=== PATIENT | female | born 1930 | race Caucasian/White ===

== ENCOUNTER 2017-06-22 12:42 | Emergency (ER) | payer BC, MEDICARE, OTHER ==
[~2017-06-22] VITALS: Ht 152.4 cm; Wt 70.3 kg
--- NOTE | 2017-06-22 12:52 | NUR ---
THE PATIENT WAS SEEN AND ASSESSED BY ER MD AT BEDSIDE
--- NOTE | 2017-06-22 12:53 | NUR ---
NO ACUTE DISTRESS- THE PATIENT DENIES PAIN OR SOB; JUST " DIZZY"
[2017-06-22] MEDS ORDERED: PANTOPRAZOLE 40 MG VIAL ONE (13:07)
[2017-06-22 13:22] LABS: BASOPHILS % (AUTO) 0.1 % (0.0-2.0); EOSINOPHILS # (AUTO) 0.1 /CMM (0.0-0.7); EOSINOPHILS % (AUTO) 1.2 % (0.0-6.0); HEMATOCRIT 29 % (33-45); HEMOGLOBIN 9.8 g/dL (11.5-14.8); LYMPHOCYTES # (AUTO) 1.4 /CMM (0.8-4.8); MEAN CORPUSCULAR HEMOGLOBIN 30 PG (26.0-33.0); MEAN CORPUSCULAR HGB CONC 34 g/dl (31.0-36.0); MEAN CORPUSCULAR VOLUME 86 fL (82-100); MONOCYTES # (AUTO) 0.4 /CMM (0.1-1.30); MONOCYTES % (AUTO) 7.6 % (2.0-12.0); NEUTROPHILS % (AUTO) 62.1 % (43.0-81.0); PLATELET COUNT (AUTO) 254 /CMM (150-450); RDW COEFFICIENT OF VARIATION 12.6 (11.5-15.0); RED BLOOD CELL COUNT(AUTO) 3.33 MIL/uL (4.0-5.2); WHITE BLOOD COUNT (AUTO) 4.9 K/uL (4.3-11.0)
[2017-06-22] MEDS ORDERED: PANTOPRAZOLE 40 MG VIAL IV ONE (13:30)
[2017-06-22] MEDS ORDERED: IV NS 0.9% 1,000 ML BAG IV ONE (13:30)
--- NOTE | 2017-06-22 13:31 | NUR ---
PT UNABLE TO PROVIDE URINE AT THIS TIME
[2017-06-22 13:44] LABS: ALANINE AMINOTRANSFERASE 25 U/L (12-78); ALBUMIN 2.9 g/dL (3.4-5.0); ALKALINE PHOSPHATASE 67 U/L (46-116); ASPARTATE AMINOTRANSFERASE 22 U/L (15-37); BILIRUBIN,DIRECT 0.1 mg/dL (0.0-0.2); BILIRUBIN,TOTAL 0.4 mg/dL (0.2-1.0); CALCIUM, SERUM 8.3 mg/dL (8.5-10.1); CARBON DIOXIDE 27 mmol/L (21-32); CHLORIDE 97 mmol/L (98-107); GLUCOSE 130 mg/dL (74-106); LIPASE 258 U/L (73-393); SODIUM SERUM 132 mmol/L (136-145); TOTAL PROTEIN, SERUM 6.2 g/dL (6.4-8.2); UREA NITROGEN, BLOOD 15 mg/dL (7-18)
--- NOTE | 2017-06-22 13:45 | NUR ---
[facility], PRESENT[facility], AWAITING CALL BACK FROM [facility]
[2017-06-22 13:48] LABS: POTASSIUM 2.7 mmol/L (3.5-5.1)
[2017-06-22 13:50] LABS: INR 0.95 (0.87-1.13); PROTHROMBIN TIME 9.9 SECS (9.5-12.7)
[2017-06-22 13:55] LABS: TROPONIN I < 0.017 ng/mL (0.00-0.056)
--- NOTE | 2017-06-22 14:08 | NUR ---
CALLED PHARMACY FOR POTASSIUM IV
[2017-06-22] MEDS ORDERED: IV NS 0.9% 250 ML IV ONE (14:10)
[2017-06-22] MEDS ORDERED: IOHEXOL-300 100 ML VIAL IV ONE (14:10)
--- NOTE | 2017-06-22 14:16 | NUR ---
CALLED [facility] TO FOLLOW UP [facility] FROM [facility], HE WILL CALL US SHORTLY.
[2017-06-22] MEDS ORDERED: METF850T2 PO (14:19)
[2017-06-22] MEDS ORDERED: GUAI-671 PO (14:19)
[2017-06-22] MEDS ORDERED: DICY10CA59 PO (14:20)
[2017-06-22] MEDS ORDERED: ATOR10TA PO (14:20)
[2017-06-22] MEDS ORDERED: VALS320T2 PO (14:20)
[2017-06-22] MEDS ORDERED: CARV25TA2 PO (14:20)
[2017-06-22] MEDS ORDERED: ASPI-1169 PO (14:20)
[2017-06-22] MEDS ORDERED: COLC0.6C PO (14:20)
[2017-06-22] MEDS ORDERED: NORT25CA PO (14:20)
[2017-06-22] MEDS ORDERED: MAGN400T26 PO (14:20)
[2017-06-22] MEDS ORDERED: FOLI1TAB16 PO (14:20)
[2017-06-22] MEDS ORDERED: GABA-532 PO (14:20)
[2017-06-22] MEDS ORDERED: CETI-102 PO (14:20)
[2017-06-22] MEDS ORDERED: DICL100G16 TP (14:20)
[2017-06-22] MEDS: POTASSIUM CL. PREMIX PERIPHER. 50 ML IV SCH ×4 (14:37→17:11)
--- NOTE | 2017-06-22 14:51 | NUR ---
SAM LOPEZ [phone] SON
[2017-06-22 14:59] LABS: APPEARANCE,URINE Clear (CLEAR); BILIRUBIN,URINE Negative (NEGATIVE); BLOOD, URINE Negative Ery/uL (NEGATIVE); COLOR,URINE Yellow (YELLOW); KETONES,URINE Negative (NEGATIVE); LEUKOCYTE ESTERASE ,URINE Negative (NEGATIVE); NITRITE, URINE Negative (NEGATIVE); PROTEIN,URINE Negative (NEGATIVE); UGLUCOSE Negative (NEGATIVE); UROBILINOGEN,URINE 0.2 EU/dL (0.2)
[2017-06-22] MEDS ORDERED: METRONIDAZOLE 500MG/ NS 100ML 100 ML IV ONE (15:24)
[2017-06-22] MEDS ORDERED: CIPROFLOXACIN IV RTU 200 ML IV ONE (15:24)
[2017-06-22] MEDS ORDERED: METRONIDAZOLE 500MG/ NS 100ML 500 MG in PREMIX 1 EA IV SCH (15:30)
[2017-06-22] MEDS ORDERED: CIPROFLOXACIN IV RTU 400 MG in PREMIX 1 EA IV SCH (15:30)
--- NOTE | 2017-06-22 16:29 | NUR ---
RECEIVED CALL FROM [facility], PT ACCEPTED TO [facility] ER BY DR. HINSON. NUMBER TO GIVE REPORT IS [phone]. [facility] SHOULD ARRIVE WITHIN THE HOUR.
--- NOTE | 2017-06-22 16:53 | NUR ---
GAVE REPORT TO [facility] DIVERTICULITIS DR EDITH CARIAS MD .
[2017-06-22 17:28] VITALS: BP 160/84
== END 2017-06-22 17:30 | disposition short-term general hospital (02) ==
LOC: ER 12:43
DX: K57.92 Diverticulitis of intestine, part unspecified, without perforation or abscess without bleeding (principal); K92.2 Gastrointestinal hemorrhage, unspecified; I10 Essential (primary) hypertension; E78.00 Pure hypercholesterolemia, unspecified; E11.9 Type 2 diabetes mellitus without complications; K21.9 Gastro-esophageal reflux disease without esophagitis; F41.9 Anxiety disorder, unspecified; Z88.6 Allergy status to analgesic agent; Z79.82 Long term (current) use of aspirin
CPT/HCPCS: 36415; 71010; 74160; 80048; 80076; 81001; 82272; 83690; 84484; 85025; 85730; 86850; 93005; 96361; 96365; 96367; 96368; 96375; 99291; A4216 ×2; A4606; C9113; J0744 ×2; J3480; J3490 ×2; J7030; J7050; Q9967; 81000-TC; Z7610